=== PATIENT | female | born 1975 | race Caucasian/White ===

== ENCOUNTER → 2021-02-04 14:12 | Outpatient (CLI) | payer SELFPAY | PROVIDERS: Visit Provider Nurse Practitioner | DX: Z20.822 Contact with and (suspected) exposure to COVID-19 (principal) | CPT/HCPCS: C9803; U0003; U0005 ==

== ENCOUNTER 2025-04-17 11:09 | Emergency (ER) | payer SELFPAY ==
[2025-04-17] VITALS (8 sets, daily range): BP systolic 106–129; BP diastolic 75–88; PULSE 57–91; RESP 13–24; TEMP 36.6–36.7; O2SAT 95–100; BMI 20.5
--- NOTE | 2025-04-17 11:07 | ECG_ITS ---
APPROVED REPORT Exam: Resting ECG HR:84 bpm ECG Measurements Heart Rate 84 AXES AL 128 P 81 QRSd 94 QRS 88 QT 363 T 6 QTc 404 Conclusion SINUS RHYTHM WITH SINUS ARRHYTHMIA SEPTAL MYOCARDIAL INFARCTION , PROBABLY OLD [40+ ms Q WAVE IN V1/V2] ABNORMAL ECG UNCONFIRMED REPORT Electronically signed by : Albert Ocasio, 04/17/2025 16:35:57
--- NOTE | 2025-04-17 11:12 | ED_ITS ---
Discharge Plan Disposition Patient Disposition: Home, Self-Care Condition: Good Prescriptions Prescriptions: New albuterol sulfate [Ventolin HFA] 90 mcg/actuation HFA aerosol inhaler 2 inh inhalation Q4H PRN (Reason: shortness of breath or wheezing) Qty: 6.7 0RF azithromycin 250 mg tablet See Rx Instructions .ROUTE .COMPLEX Qty: 6 0RF Rx Instructions: For 250 mg dose pack: take 500 mg today (day 1), then 250 mg for 4 days (days 2-5) prednisone 20 mg tablet 40 mg PO DAILY 5 Days Qty: 10 0RF ibuprofen 600 mg tablet 600 mg PO Q8H PRN (Reason: pain) Qty: 30 0RF acetaminophen 500 mg capsule 1,000 mg PO Q6H PRN (Reason: pain) Qty: 30 0RF Referrals Follow up/Referrals: Leslye Stephenson APRN [Primary Care Provider, Medical] - See instructions Activity Restrictions/Add. Instructions Additional Instructions/Restrictions: Stay well-hydrated. Take a multivitamin daily to address your slightly low potassium. Please follow up with your primary care provider in 2-3 days. Please return to ED if your symptoms worsen, change in location, change in severity, new symptoms develop or if you become concerned for your health. Clinical Impressions Clinical Impression: Chest wall pain, Bronchitis, Hypokalemia Print Language Print Language: Hebrew Discharge ED Provider: Albert Ocasio Adult [facility] General Chief complaint: Chest Pain Stated complaint: Chest Pain Time Seen by Provider: 04/17/25 11:12 Related Data Previous Rx's ?Medication ?Instructions ?Recorded acetaminophen 500 mg capsule 1,000 mg (2 x 500 mg) PO Q6H PRN 04/17/25 pain #30 caps albuterol sulfate 90 mcg/actuation 2 inh inhalation Q4 H PRN shortness 04/17/25 aerosol inhaler (Ventolin HFA) of breath or wheezing # 6.7 grams azithromycin 250 mg tablet See Rx Instructions PO .COM PLEX #6 04/17/25 tabs ibuprofen 600 mg tablet 600 mg PO Q8H PRN pain #30 t abs 04/17/25 prednisone 20 mg tablet 40 mg (2 x 20 mg) PO DAILY 5 days 04/17/25 #10 tabs Allergies Allergy/AdvReac Type Severity Reaction Status Date / Time No Known Allergies Allergy Verified 04/17/25 11:24 [facility] Disclaimer: The information contained in this section may have been updated after the patient was seen, as this information can be updated by other users. Social History Smoking Status: Current every day smoker alcohol intake: never current occupational status: employed Travel in the last 8 weeks?: None ROS Obtained: Yes All systems reviewed & no additional complaints except as documented Physical Exam General General appearance: alert and in no apparent distress Head Head exam: atraumatic and normocephalic Eye Eye exam: Present PERRL and EOMI ENT ENT exam: Present normal oropharynx Neck Neck exam: Present full ROM and trachea midline Chest Chest inspection: Present symmetric chest wall rise and tenderness Respiratory Respiratory exam: Present normal lung sounds bilaterally; Absent stridor Cardiovascular Cardiovascular exam: Present regular rate and normal rhythm Abdominal Exam Abdominal exam: Present soft; Absent distention or tenderness Extremities Exam Extremities exam: Present full ROM Neurological Exam Neurological exam: Present alert and oriented X3 Psychiatric Psychiatric exam: Present normal mood Skin Skin exam: Present warm and dry Medical Decision Making Medical Records Screening: Per USPSTF and CDC recommendations, given the prevalence of disease in our region, it is our hospital?s policy to screen for HIV and viral Hepatitis for all patients aged 18 and over and those with ongoing risk factors. [place] Inquiry Pt receiving controlled substance: No Vital Signs: 04/17/25 11:10 04/17/25 11:10 04/17/25 11:28 Temperature 98 F 98 F Temperature Source Oral Oral Pulse Rate 91 H 75 Pulse Rate [Right] 91 H Respiratory Rate 20 20 Blood Pressure 116/85 Blood Pressure [Right Arm] 116/85 Blood Pressure Mean [Right Arm] 95 Blood Pressure Source Automatic Cuff Blood Pressure Source [Right Arm] Automatic Cuff Blood Pressure Position Supine Blood Pressure Position [Right Arm] Supine 02 Sat by Pulse Oximetry 100 100 Oxygen Delivery Method Room Air Room Air Lab Data Lab Results 04/17/25 11:20: WBC 10.6, RBC 5.02, Hgb 15.1, Hct 44.4, MCV 88.4, MCH 30.1, MCHC 34.0, RDW 13.0, Plt Count 228, MPV 11.8 H, Neut % (Auto) 53.7, Lymph % (Auto) 38.4, Brown % (Auto) 6.4, Eos % (Auto) 0.8, Baso % (Auto) 0.5, Neut # (Auto) 5.7, Lymph # (Auto) 4.1, Brown # (Auto) 0.7, Eos # (Auto) 0.1, Baso # (Auto) 0.1, D- Dimer 0.44, Sodium 143, Potassium 3.4 L, Chloride 105, Carbon Dioxide 22, Anion Gap 19.4 H, BUN 13, Creatinine 0.70, Estimated Creat Clear 81, Estimated GFR 88, Est GFR ( Amer) 106, Glucose 101 H, Calcium 10.4 H, Magnesium 1.8, Total Bilirubin 0.5, AST 29, ALT 20, Alkaline Phosphatase 97, Troponin I < 0.01, Total Protein 8.5 H, Albumin 5.2 H, Globulin 3.3 H, Albumin/Globulin Ratio 1.6, Lipase 156, Serum HCG, Qual Negative 04/17/25 11:20 04/17/25 11:20 Orders (Tests/Meds): ED MEDICATIONS Generic Name Dose Route Start Last Admin Trade Name Freq PRN Reason Stop Dose Admin Sodium Chloride 8 ml 04/17/25 11:48 04/17/25 12:05 Sodium Chloride 0.9% 10ml Vial IV 05/17/25 11:47 8 ml NEEDED PRN Administration dilute pepcid Discontinued Medications Generic Name Dose Route Start Last Admin Trade Name Freq PRN Reason Stop Dose Admin Acetaminophen 1,000 mg 04/17/25 11:48 04/17/25 12:05 Acetaminophen 500mg Tab PO 04/17/25 11:49 1,000 mg ONCE ONE Administration Albuterol/Ipratropium 3 ml 04/17/25 12:30 04/17/25 12:40 Ipratropium/Albuterol 3 Ml Neb IH 04/17/25 12:31 3 ml ONCE ONE Administration Belladonna Alkaloids 60 ml 04/17/25 11:48 04/17/25 12:04 Belladonna Alkaloids 60 Ml Ml PO 04/17/25 11:49 60 ml ONCE ONE Administration Famotidine 20 mg 04/17/25 11:48 04/17/25 12:05 Famotidine 20mg/2ml Vial IV 04/17/25 11:49 20 mg ONCE ONE Administration Ketorolac Tromethamine 15 mg 04/17/25 11:48 04/17/25 12:05 Ketorolac 15mg/Ml Vial IV 04/17/25 11:49 15 mg ONCE ONE Administration Ondansetron HCl 4 mg 04/17/25 11:48 04/17/25 12:04 Ondansetron 4mg/2ml Vial IV 04/17/25 11:49 4 mg ONCE ONE Administration ORDERS Category Date Time Status XR chest portable Stat Exams 04/17/25 11:48 Completed CBC w/Auto Diff [Complete Blood Count Auto Diff] Stat Lab 04/17/25 11:20 Completed CMP [Comprehensive Metabolic Panel] Stat Lab 04/17/25 11:20 Completed D-Dimer Stat Lab 04/17/25 11:20 Completed HCG Qualitative, Serum Stat Lab 04/17/25 11:20 Completed Lipase Stat Lab 04/17/25 11:20 Completed MAG [Magnesium] Stat Lab 04/17/25 11:20 Completed Trop I [Troponin I] Stat Lab 04/17/25 11:20 Completed Troponin I Q3H Lab 04/17/25 15:00 Ordered Troponin I Q3H Lab 04/17/25 18:00 Ordered ECG Data Tracing #1: I reviewed this ECG and interpreted as documented below: Normal sinus rhythm with no obvious acute ischemic ST changes. Minimal voltage criteria for LVH, not acutely actionable HEART Score History (anamnesis): Slightly suspicious ECG: Normal Age: 45-65 years Risk factors: 1-2 risk factors Troponin: </= normal limit HEART Score: 2 Medical Decision Narrative: Patient is a 50-year-old female with No significant past medical history due to her not going to the doctor. She is a smoker. She is presenting primarily for shortness of breath for the last several months. She is also had intermittent chest pains that do not associate with exertion. They are sharp and stabbing intermittent and made worse by palpation of the chest. Positional. She reports that she has had a dry cough over the last couple of weeks. Denies any fevers or productive cough. She is significantly anxious and reported that she had a panic attack this morning. She also complains on review of systems of a mild tension headache, cramping abdominal pains, primarily epigastric in nature radiating up. Reports nausea without vomiting. Denies any diarrhea dysuria or hematuria. No flank tenderness. On arrival, patient is afebrile, mildly tachycardic, otherwise stable. On exam, warm and well-perfused with full and equal pulses in all extremities. Heart is tachycardic rate with a regular rhythm, lung sounds are clear to auscultation bilaterally with some prolonged expiratory phase, but no wheezing or increased work of breathing. She is significantly anxious. She is tender along the anterior chest wall without crepitus or paradoxical wall movement. I suspect costochondritis. She is also mildly tender in the epigastrium but not tender anywhere else. I suspect gastritis is most likely. Will treat with multimodal pain control. Will screen for ACS and PE with troponins and D-dimer. Reassuringly, D-dimer is below the cutoff, consider cross-sectional imaging of chest, but deferred given reassuring dimer. I offered patient anxiety medicine, but she is refusing at this time because she does not like to take medicines, but she is amenable to pain control for her chest pain that is likely chest wall pain as well as a DuoNeb to see if that improves what is likely COPD from her smoking. Heart score of 2. On reassessment, patient reports improvement in symptoms. She is ambulatory without symptomatology or desaturation. She is tolerating oral intake. I independently interpreted the chest x-ray to demonstrate no acute cardiopulmonary abnormality. Hyperinflation without pneumonia. She did get a nebulizer treatment and reports improvement with that. Given her hyperinflated lungs without evidence of pneumonia and smoking history, it is possible that she has a history of COPD. Given her chronic cough, we will treat her for bronchitis with azithromycin, prednisone. PCP follow-up. My clinical impression was discussed with the patient and all questions were answered. Return precautions were given, with verbalization of understanding and agreement of this plan. Any pending results are to be followed up online. Critical Care Critical Care Time Critical Care Time: No
--- NOTE | 2025-04-17 11:48 | XR_ITS ---
PROCEDURE INFORMATION: Exam: XR Chest Exam date and time: 04/17/2025 11:52 AM Age: 50 years old Clinical indication: Shortness of breath; Sternal or substernal pain; Additional info: Virgilio , MICHELLE TECHNIQUE: Imaging protocol: Radiologic exam of the chest. Views: 1 view. Total images: 1 COMPARISON: No relevant prior studies available. FINDINGS: Lungs: Bilateral hyperinflation is present. Atelectatic changes right lung base. No focal pneumonia. Pleural spaces: No pleural effusion. No pneumothorax. Heart/Mediastinum: No cardiomegaly. Bones/joints: Unremarkable. IMPRESSION: 1. Bilateral hyperinflation is present. 2. Atelectatic changes right lung base. 3. No focal pneumonia.
[2025-04-17 11:58] LABS: HCG Qualitative, Serum Negative (Negative)
[2025-04-17 12:03] LABS: Hematocrit 44.4 % (37.0-47.0); Hemoglobin 15.1 g/dL (12.2-16.2); Immature Granulocytes % 0.2 %; Mean Corpuscular HGB Conc 34.0 g/dL (31.8-35.4); Mean Corpuscular Hemoglobin 30.1 pg (27.0-31.2); Mean Corpuscular Volume 88.4 fl (81-99); Nucleated Red Blood Cells % 0 %; Platelet Count 228 K/mm3 (142-424); Red Blood Count 5.02 M/mm3 (4.20-5.40); Red Cell Distribution Width-SD 41.8 fL; White Blood Count 10.6 K/mm3 (4.8-10.8)
[2025-04-17 12:04] LABS: Alanine Aminotransferase 20 U/L (12-78); Albumin Level 5.2 g/dl (3.5-5.0); Albumin/Globulin Ratio 1.6 (1.1-1.8); Alkaline Phosphatase 97 U/L (38-126); Anion Gap 19.4 mEq/L (5-15); Aspartate Amino Transferase 29 U/L (14-36); Bilirubin,Total 0.5 mg/dl (0.2-1.3); Blood Urea Nitrogen 13 mg/dl (7-17); Calcium 10.4 mg/dl (8.4-10.2); Carbon Dioxide 22 mmol/L (22.0-30.0); Chloride 105 mmol/L (98-107); Creatinine Clearance Estimated 81 mL/min (50-200); Creatinine,Serum 0.70 mg/dl (0.52-1.04); Estimated Glomerular Filt Rate 88 ml/min (>60); GFR (African American) 106 ML/MIN (>60); Globulin 3.3 g/dL (1.3-3.2); Glucose 101 mg/dl (74-100); Lipase 156 U/L (23-300); Magnesium 1.8 mg/dl (1.6-2.3); Potassium 3.4 mmoL/L (3.5-5.1); Sodium 143 mmol/L (136-145); Total Protein,Serum 8.5 g/dl (6.3-8.2)
[2025-04-17] MEDS: ONDANSETRON 4MG/2ML VIAL 4 MG IV (12:04)
[2025-04-17] MEDS: BELLADONNA ALKALOIDS 60 ML ML PO (12:04)
[2025-04-17] MEDS: KETOROLAC 15MG/ML VIAL 15 MG IV (12:05)
[2025-04-17] MEDS: ACETAMINOPHEN 500MG TAB 1000 MG PO (12:05)
[2025-04-17] MEDS: FAMOTIDINE 20MG/2ML VIAL 20 MG IV (12:05)
[2025-04-17] MEDS: SODIUM CHLORIDE 0.9% 10ML VIAL 8 ML IV (12:05)
[2025-04-17 12:08] LABS: D-Dimer 0.44 ug/mL (0.0-0.5)
[2025-04-17 12:20] LABS: Troponin I < 0.01 ng/ml (0.00-0.034)
[2025-04-17] MEDS: IPRATROPIUM/ALBUTEROL 3 ML NEB IH (12:40)
== END 2025-04-17 13:36 | disposition home or self-care (01) ==
PROVIDERS: Emergency Provider Emergency Medicine; PCP Nurse Practitioner Family
DX: R07.89 Other chest pain (principal); J20.9 Acute bronchitis, unspecified; E87.6 Hypokalemia; F17.210 Nicotine dependence, cigarettes, uncomplicated
CPT/HCPCS: 71045; 80053; 83690; 83735; 84484; 84703; 85025; 85378; 93005; 96374; 96375; 99285; J1308; J1885; J2405